=== PATIENT | female | born 1970 | race Caucasian/White ===

== ENCOUNTER → 2024-12-15 | Outpatient (CLI) | payer BC, SELFPAY | END | disposition home or self-care (01) | LOC: LABSPEC 15:21 | PROVIDERS: PCP Physician Assistant; Visit Provider Physician Assistant | DX: R30.0 Dysuria (principal) | CPT/HCPCS: 87086; 87088 ==

== ENCOUNTER → 2025-06-16 | Outpatient (CLI) | payer BC, SELFPAY ==
[2025-06-16 17:18] LABS: Vitamin D,25 Hydroxy 27.3 ng/mL (30-100)
[2025-06-18 12:09] LABS: PROGESTERONE 0.7 ng/mL (.)
== END | disposition home or self-care (01) ==
LOC: LABSPEC 16:29
PROVIDERS: PCP Physician Assistant; Referring Provider Nurse Practitioner Family; Visit Provider Nurse Practitioner Family
DX: E28.9 Ovarian dysfunction, unspecified (principal); R68.82 Decreased libido; R53.83 Other fatigue; R23.2 Flushing; L71.9 Rosacea, unspecified; G47.00 Insomnia, unspecified; F32.A Depression, unspecified; F90.8 Attention-deficit hyperactivity disorder, other type
CPT/HCPCS: 82306; 82627; 82670; 84144; 84403; 82626